=== PATIENT | male | born 1985 | race Caucasian/White ===

== ENCOUNTER 2024-03-08 11:57 | Emergency (ER) | payer BC, OTHER ==
[2024-03-08 12:31] LABS: Absolute Eosinophils 0.1 K/uL (0-0.5); Absolute Lymphocytes (CBC) 1.9 K/uL (0.7-4.9); Absolute Monocytes 0.5 K/uL (0.1-1.3); Absolute Neutrophil 4.9 K/uL (1.8-8.0); Basophils % 0.6 % (0-1.3); Eosinophils % 1.4 % (0-4.4); Hematocrit 50.8 % (39.6-49.0); Hemoglobin 17.1 g/dL (13.6-17.9); Lymphocytes % 25.8 % (15.3-44.8); MCH 31.6 pg (27.0-35.0); MCHC 33.6 g/dL (32.0-36.0); MCV 94.2 fL (80-100); MPV 8.9 fL (7.6-11.3); Monocytes % 6.4 % (3.3-12.3); Neutrophils % 65.8 % (41.7-73.7); Platelets 193 thou/uL (152-406); Red Cell Distribution Width 12.9 % (12.1-15.2)
[2024-03-08] MEDS ORDERED: NA CHLORIDE 0.9% 1,000 ML ONE (12:31)
[2024-03-08 12:34] LABS: PT Prothrombin Time 10.9 SECONDS (9.4-12.5); Protime INR 0.97
[2024-03-08 12:54] LABS: Albumin/Globulin Ratio 1.3 (1.1-1.8); Anion Gap 12.8 mEq/L (5.0-15.0); Bilirubin Direct 0.2 mg/dL (0-0.2); Bilirubin Indirect, Calculated 0.6 mg/dL (0.2-0.8); Bilirubin Total 0.8 mg/dL (0.2-1.0); Magnesium 1.9 mg/dL (1.6-2.4); Potassium 3.8 mEq/L (3.5-5.1)
[2024-03-08 13:27] LABS: Barbiturates NEGATIVE (NEGATIVE); Benzodiazepines NEGATIVE (NEGATIVE); Cocaine NEGATIVE (NEGATIVE); METHAMPHETAM NEGATIVE (NEGATIVE); Methadone NEGATIVE (NEGATIVE); Opiates NEGATIVE (NEGATIVE); Phencyclidine NEGATIVE (NEGATIVE); THC Cannibis NEGATIVE (NEGATIVE)
--- NOTE | 2024-03-08 13:40 | RAD REPORT ---
EXAM DESCRIPTION: Johnt Single View03/08/2024 1:04 pm CLINICAL HISTORY: PALPITATIONS COMPARISON: CHEST SINGLE VIEW dated 12/07/2010; CHEST PA AND LAT 2 VIEW dated 09/02/2010; CHEST PA AND L AT 2 VIEW dated 02/24/2004 TECHNIQUE: Portable AP view of the chest. FINDINGS: The lungs are clear. No pneumothorax or effusion. The cardiomediastinal contours are unre markable. IMPRESSION: No acute cardiopulmonary process.
--- NOTE | 2024-03-08 13:53 | EDPHYS ---
Physician Documentation [facility] Name: Marek Lopez Age: 38 yrs Sex: Male : 1985 Arrival Date: 03/08/2024 Time: 11:57 Bed 16 Private MD: ED Physician Quinn Diaz HPI: 03/08 13:21 This 38 yrs old Male presents to ER via EMS with complaints of Dizziness, High heart sp3 rate. 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 Patient denies any anxiousness per se but does think that that may be a possibility. He denies any other associated symptoms and symptoms are overall improving. He denies any medical prodrome or anytime before or now headache, neck pain, chest pain, shortness of breath, abdominal pain, vomiting, diarrhea, focal neurological deficit, slurred speech, or any other signs or symptoms on ROS at this time. He does endorse to using some new "supplements" as well as "probiotics". Some he has been using for a while and some are relatively new.. Historical: - Allergies: 12:09 No Known Allergies; cm10 - Home Meds: 12:09 losartan potassium (bulk) [Active]; cm10 - PMHx: 12:09 Hypertensive disorder; cm10 - PSHx: 12:09 None; cm10 - Immunization history:: Adult Immunizations up to date. - Infectious Disease History:: Denies. - Social history:: Smoking status: Patient denies any tobacco usage or history of. ROS: 13:22 Constitutional: Negative for fever, chills, and weight loss, Eyes: Negative for injury, sp3 pain, redness, and discharge, Neck: Negative for injury, pain, and swelling, Respiratory: Negative for shortness of breath, cough, wheezing, and pleuritic chest pain, Back: Negative for injury and pain, MS/Extremity: Negative for injury and deformity, Skin: Negative for injury, rash, and discoloration, Psych: Negative for depression, anxiety, suicide ideation, homicidal ideation, and hallucinations, Allergy/Immunology: Negative for hives, rash, and allergies, Endocrine: Negative for neck swelling, polydipsia, polyuria, polyphagia, and marked weight changes, Hematologic/Lymphatic: Negative for swollen nodes, abnormal bleeding, and unusual bruising, 13:22 All other systems are negative, Exam: 13:23 Constitutional: This is a well developed, well nourished patient who is awake, alert, sp3 and in no acute distress. Head/Face: Normocephalic, atraumatic. Eyes: Pupils equal round and reactive to light, extra-ocular motions intact. Lids and lashes normal. Conjunctiva and sclera are non-icteric and not injected. Cornea within normal limits. Periorbital areas with no swelling, redness, or edema. ENT: Nares patent. No nasal discharge, no septal abnormalities noted. External auditory canals are clear. Oropharynx with no redness, swelling, or masses, exudates, or evidence of obstruction, uvula midline. Mucous membranes moist. Neck: Trachea midline, no thyromegaly or masses palpated, and no cervical lymphadenopathy. Supple, full range of motion without nuchal rigidity, or vertebral point tenderness. No Meningismus. Chest/axilla: Normal chest wall appearance and motion. Nontender with no deformity. No lesions are appreciated. Respiratory: Lungs have equal breath sounds bilaterally, clear to auscultation and percussion. No rales, rhonchi or wheezes noted. No increased work of breathing, no retractions or nasal flaring. Abdomen/GI: Soft, non-tender, with normal bowel sounds. No distension or tympany. No guarding or rebound. No evidence of tenderness throughout. Back: No spinal tenderness. No costovertebral tenderness. Full range of motion. Skin: Warm, dry with normal turgor. Normal color with no rashes, no lesions, and no evidence of cellulitis. MS/ Extremity: Pulses equal, no cyanosis. Neurovascular intact. Full, normal range of motion. Neuro: Awake and alert, GCS 15, oriented to person, place, time, and situation. Cranial nerves II-XII grossly intact. Motor strength 5/5 in all extremities. Sensory grossly intact. Cerebellar exam normal. Normal gait. Psych: Awake, alert, with orientation to person, place and time. Behavior, mood, and affect are within normal limits. 13:23 Cardiovascular: Tachycardic, 13:24 ECG was reviewed by the Attending Physician. EKG demonstrates sinus tachycardia at 120 sp3 bpm with normal intervals, normal QRS, normal axis, nonspecific diffuse ST's ST changes without evidence of acute ischemia. Vital Signs: 12:08 BP 169 / 100; Pulse 123; Resp 19; Temp 98.5(O); Pulse Ox 97% on R/A; Weight 120.2 kg; cm10 Height 6 ft. 1 in. ; Pain 0/10; 12:38 BP 142 / 84; Pulse 103; Resp 18; Temp 98.4; Pulse Ox 100% on R/A; kj2 14:34 BP 144 / 97; Pulse 93; Resp 20; Temp 98; Pulse Ox 98% on R/A; kj2 12:08 Body Mass Index 34.96 (120.20 kg, 185.42 cm) cm10 12:08 Pain Scale: Adult cm10 MDM: 12:05 Patient medically screened. sp3 13:51 Data reviewed: vital signs, nurses notes, lab test result(s), EKG, radiologic studies. sp3 ED course: Reviewed all labs with patient. LFTs are elevated and need to be followed up upon. I have advised against alcohol and Tylenol. Heart rate now 95-105. I believe anxiety was a component to this. After review of all outstanding studies, I believe patient is safe to go home.. 03/08 12:19 Order name: Basic Metabolic Panel; Complete Time: 13:47 cm10 03/08 12:19 Order name: CBC with Diff; Complete Time: 13:47 cm10 03/08 12:19 Order name: LFT's; Complete Time: 13:47 cm10 03/08 12:19 Order name: Magnesium; Complete Time: 13:47 cm10 03/08 12:19 Order name: NT PRO-BNP; Complete Time: 13:47 cm10 03/08 12:19 Order name: PT-INR; Complete Time: 13:47 cm10 03/08 12:19 Order name: Troponin HS; Complete Time: 13:47 cm10 03/08 12:19 Order name: UDS; Complete Time: 13:47 cm10 03/08 12:19 Order name: XRAY Chest (1 view); Complete Time: 13:47 cm10 03/08 12:19 Order name: Cardiac monitoring; Complete Time: 12:19 cm10 03/08 12:19 Order name: EKG - Nurse/Tech; Complete Time: 12:20 cm10 03/08 12:19 Order name: IV Saline Lock; Complete Time: 12:20 cm10 03/08 12:19 Order name: Labs collected and sent; Complete Time: 12:20 cm10 03/08 12:19 Order name: O2 Per Protocol; Complete Time: 12:20 cm10 03/08 12:19 Order name: O2 Sat Monitoring; Complete Time: 12:20 cm10 Administered Medications: 12:36 Drug: NS 0.9% IV 1000 ml IV at 1000 ml once Route: IV; Rate: 1000 ml; Site: left kj2 antecubital; 13:40 Follow up: IV Status: Completed infusion; IV Intake: 1000ml kj2 14:21 Follow up: Response: No adverse reaction kj2 Disposition Summary: 03/08/24 13:52 Discharge Ordered Notes: Location: Home sp3 Condition: Stable sp3 Diagnosis - Anxiety, elevated LFTs sp3 Followup: sp3 - With: Private Physician - When: Upon discharge from the Emergency Department - Reason: Continuance of care Discharge Instructions: - Discharge Summary Sheet sp3 - Liver Function Tests sp3 - Managing Anxiety, Adult sp3 Forms: - Medication Reconciliation Form sp3 - Antibiotic Education sp3 - Prescription Opioid Use sp3 - Patient Portal Instructions sp3 - Leadership Thank You Letter sp3 Signatures: Dispatcher [employer] EDQuinn Aragon MD MD sp3 Christy Machado, RN RN cm10 Adrienne Graham RN RN kj2 Corrections: (The following items were deleted from the chart) 12:20 12:20 BASIC METABOLIC PANEL+C.LAB.BRZ ordered. EDMS EDMS 12:20 12:20 CBC+H.LAB.BRZ ordered. EDMS EDMS 12:20 12:20 HEPATIC FUNCTION+C.LAB.BRZ ordered. EDMS EDMS 12:20 12:20 MAGNESIUM+C.LAB.BRZ ordered. EDMS EDMS 12:20 12:20 PROBNP+C.LAB.BRZ ordered. EDMS EDMS 12:20 12:20 PROTIME (+INR)+COAG.LAB.BRZ ordered. EDMS EDMS 12:20 12:20 Troponin High Sensitivity+C.LAB.BRZ ordered. EDMS EDMS 12:20 12:20 URINE DRUG SCREEN+UC.LAB.BRZ ordered. EDMS EDMS 12:20 12:20 Chest Single View+RAD.RAD.BRZ ordered. EDMS EDMS
--- NOTE | 2024-03-08 13:53 | ER ---
Nurse's Notes [facility] Name: Marek Lopez Age: 38 yrs Sex: Male : 1985 Arrival Date: 03/08/2024 Time: 11:57 Bed 16 Private MD: Diagnosis: Anxiety, elevated LFTs Presentation: 03/08 12:08 Chief complaint: EMS states: Pt called due to having dizziness, high heart rate and cm10 elevated BP. Patient reports that he was sitting at his desk when this happened. Pt states that the dizziness began around 1030 this morning. Coronavirus screen: Client denies travel out of the [place] in the last 14 days. At this time, the client does not indicate any symptoms associated with coronavirus-19. Ebola Screen: Patient denies travel to an Ebola-affected area in the 21 days before illness onset. No symptoms or risks identified at this time. Initial Sepsis Screen: Does the patient meet any 2 criteria? HR > 90 bpm. Does the patient have a suspected source of infection? No. Patient's initial sepsis screen is negative. Risk Assessment: Do you want to hurt yourself or someone else? Patient reports no desire to harm self or others. Onset of symptoms was March 08, 2024. 12:08 Method Of Arrival: EMS: [facility] cm10 12:08 Acuity: SHELIA 2 cm10 Triage Assessment: 12:10 General: Appears in no apparent distress. comfortable, Behavior is calm, cooperative. cm10 Neuro: No deficits noted. Level of Consciousness is awake, alert, obeys commands, Oriented to person, place, time, situation, Appropriate for age Reports dizziness. Historical: - Allergies: 12:09 No Known Allergies; cm10 - Home Meds: 12:09 losartan potassium (bulk) [Active]; cm10 - PMHx: 12:09 Hypertensive disorder; cm10 - PSHx: 12:09 None; cm10 - Immunization history:: Adult Immunizations up to date. - Infectious Disease History:: Denies. - Social history:: Smoking status: Patient denies any tobacco usage or history of. Screenin:40 [facility] ED Fall Risk Assessment (Adult) History of falling in the last 3 months, kj2 including since admission No falls in past 3 months (0 pts) Confusion or Disorientation No (0 pts) Intoxicated or Sedated No (0 pts) Impaired Gait No (0 pts) Mobility Assist Device Used No (0 pt) Altered Elimination No (0 pt) Score/Fall Risk Level 0 - 2 = Low Risk. Abuse screen: Denies threats or abuse. Denies injuries from another. Nutritional screening: No deficits noted. Tuberculosis screening: No symptoms or risk factors identified. Assessment: 12:39 General: Appears in no apparent distress. Behavior is calm, cooperative. Pain: Denies kj2 pain. Neuro: Level of Consciousness is awake, alert, Oriented to person, place, time, situation. Cardiovascular: Patient's skin is warm and dry. Respiratory: Airway is patent. GI: No deficits noted. : No deficits noted. 14:35 Reassessment: RN reported blood pressure to Dr Diaz, no new orders at this time, ok to kj2 discharge. Vital Signs: 12:08 BP 169 / 100; Pulse 123; Resp 19; Temp 98.5(O); Pulse Ox 97% on R/A; Weight 120.2 kg; cm10 Height 6 ft. 1 in. ; Pain 0/10; 12:38 BP 142 / 84; Pulse 103; Resp 18; Temp 98.4; Pulse Ox 100% on R/A; kj2 14:34 BP 144 / 97; Pulse 93; Resp 20; Temp 98; Pulse Ox 98% on R/A; kj2 12:08 Body Mass Index 34.96 (120.20 kg, 185.42 cm) cm10 12:08 Pain Scale: Adult cm10 ED Course: 12:01 Patient arrived in ED. em1 12:02 Quinn Diaz MD is Attending Physician. sp3 12:09 Triage completed. cm10 12:10 Arm band placed on Patient placed in an exam room, on a stretcher, on court recording monitor, cm10 on pulse oximetry. EKG completed in triage. Results shown to MD. 12:11 Initial lab(s) drawn, by me, held in ED. Inserted saline lock: 20 gauge in left cm10 forearm, using aseptic technique. Blood collected. Flushed with 10 mL NS Missed attempt(s): 18 gauge in left antecubital area. Bleeding controlled, band aid applied, catheter tip intact. 12:11 EKG done, by ED staff, reviewed by Quinn Diaz MD. cm10 12:14 Patient has correct armband on for positive identification. Placed in gown. Bed in low cm10 position. Call light in reach. Side rails up X 1. Client placed on continuous cardiac and pulse oximetry monitoring. NIBP monitoring applied. environmental monitoring technician on. 12:24 Basic Metabolic Panel Sent. cm10 12:24 CBC with Diff Sent. cm10 12:24 LFT's Sent. cm10 12:24 Magnesium Sent. cm10 12:24 NT PRO-BNP Sent. cm10 12:24 PT-INR Sent. cm10 12:24 Troponin HS Sent. cm10 12:30 Adrienne Graham, RN is Primary Nurse. kj2 12:42 Provided Education on: call light, fall precautions. kj2 12:42 No provider procedures requiring assistance completed. kj2 13:02 Assisted to bathroom. kj2 13:06 XRAY Chest (1 view) In Process Unspecified. EDMS 14:36 IV discontinued, intact, bleeding controlled, No redness/swelling at site. Pressure kj2 dressing applied. Administered Medications: 12:36 Drug: NS 0.9% IV 1000 ml IV at 1000 ml once Route: IV; Rate: 1000 ml; Site: left kj2 antecubital; 13:40 Follow up: IV Status: Completed infusion; IV Intake: 1000ml kj2 14:21 Follow up: Response: No adverse reaction kj2 Medication: 12:42 VIS not applicable for this client. kj2 Intake: 13:40 IV: 1000ml; Total: 1000ml. kj2 Outcome: 13:52 Discharge ordered by . sp3 14:36 Discharged to home ambulatory, kj2 14:36 Condition: stable 14:36 Discharge instructions given to patient, Instructed on discharge instructions, follow up and referral plans. Demonstrated understanding of instructions, follow-up care, 14:47 Patient left the ED. kj2 Signatures: Dispatcher [employer] EDMS Andre Machado em1 Quinn Diaz MD MD sp3 Christy Machado, GEORGETTE RN cm10 Adrienne Graham, GEORGETTE RN kj2 Corrections: (The following items were deleted from the chart) 12:10 12:08 Chief complaint: EMS states: Pt called due to having dizziness, high heart rate cm10 and elevated BP. Patient reports that he was sitting at his desk when this happened. cm10
[2024-03-08 15:45] VITALS: BP 144/97; TEMP 98; O2SAT 98
--- NOTE | 2024-03-09 14:07 | EKG ---
Test Date: 2024-03-08 Test Time: 12:04:19 [employer]inder: PAOLO MEASUREMENT RESULTS: Intervals: Rate: 121 NM: 156 QRSD: 92 QT: 308 QTc: 437 [place]: P: 74 NM: 156 QRS: 5 T: 55 INTERPRETIVE STATEMENTS: Sinus tachycardia Otherwise normal ECG Compared to ECG 02/24/2004 17:07:00 Sinus rhythm no longer present Sinus arrhythmia no longer present Electronically Signed On 03-09-24 14:06:19 CDT by Mukesh Decker
== END 2024-03-08 14:47 | disposition home or self-care (01) ==
LOC: ER 11:57
DX: F41.9 Anxiety disorder, unspecified (principal); R79.89 Other specified abnormal findings of blood chemistry; I10 Essential (primary) hypertension
CPT/HCPCS: 93005; 85025; 80048; 36415; 83735; 85610; 80076; 84484; 83880; 80307; 71045; 96360; 99285; J7030